=== PATIENT | female | born 1950 | race Caucasian/White ===

== ENCOUNTER 2023-02-19 22:13 | Emergency (ER) | payer MEDICARE ==
[2023-02-19 23:55] VITALS: RESP 16; TEMP 97.5
[2023-02-20] MEDS ORDERED: ONDANSETRON 4 MG/2 ML VIAL IVP STA (00:18)
[2023-02-20] MEDS ORDERED: MORPHINE SULFATE 2 MG/ML SYRINGE IVP STA (00:18)
--- NOTE | 2023-02-20 00:19 | ED ---
Fall HPI - General Source: patient, family, EMS Mode of arrival: EMS <Ce Nieves - Last Filed: 02/20/23 00:35> <Anand Lutz - Last Filed: 02/20/23 00:50> - General Chief Complaint: Fall Stated Complaint: Fall Time Seen by Provider: 02/19/23 22:40 - History of Present Illness Initial Comments: 72-year-old female presenting for evaluation post fall. Patient states that she took a wrong step and then fell down 12 stairs at home. No loss of consciousness or blood thinners. She is complaining mainly of right arm pain and neck pain. She is placed in a c-collar by EMS and makeshift arm splint. No abdominal pain, chest pain, difficulty breathing, palpitations, numbness, tingling, weakness. She was given fentanyl for pain by EMS. (Ce Nieves) - Related Data Allergies Allergy/AdvReac Type Severity Reaction Status Date / Time codeine AdvReac Nausea & Verified 02/19/23 22:59 Vomiting Review of Systems ROS Other: All systems not noted in ROS Statement are negative. <Ce Nieves - Last Filed: 02/20/23 00:35> ROS Other: All systems not noted in ROS Statement are negative. <Anand Lutz - Last Filed: 02/20/23 00:50> ROS Statement: Those systems with pertinent positive or pertinent negative responses have been documented in the HPI. Past Medical History History of Any Multi-Drug Resistant Organisms: None Reported Past Surgical History: Hysterectomy Additional Past Surgical History / Comment(s): double mastectomy 2012. hysterectomy 2004 Past Psychological History: Anxiety, Depression Smoking Status: Never smoker Past Alcohol Use History: None Reported Past Drug Use History: None Reported <Ce Nieves - Last Filed: 02/20/23 00:35> General Exam Limitations: no limitations General appearance: alert, in no apparent distress Head exam: Present: atraumatic, normocephalic, normal inspection Eye exam: Present: normal appearance, PERRL, EOMI. Absent: scleral icterus, conjunctival injection, periorbital swelling Neck exam: Present: normal inspection Respiratory exam: Present: normal lung sounds bilaterally. Absent: respiratory distress, wheezes, rales, rhonchi, stridor Cardiovascular Exam: Present: regular rate, normal rhythm, normal heart sounds. Absent: systolic murmur, diastolic murmur, rubs, gallop, clicks GI/Abdominal exam: Present: soft. Absent: distended, tenderness, guarding, rebound, rigid Right Shoulder Exam: Present: normal inspection, full ROM, tenderness Upper Arm exam: Present: normal inspection, full ROM, tenderness Forearm Wrist exam: Present: tenderness, swelling. Absent: full ROM Vascular: Absent: vascular compromise Neurological exam: Present: alert, oriented X3 Expanded Patient oriented to: Present: person, place, time Speech: Present: fluid speech Cranial nerves: EOM's Intact: Normal Eye Response: (4) open spontaneously Motor Response: (6) obeys commands Verbal Response: (5) oriented Kristi Total: 15 Psychiatric exam: Present: normal affect, normal mood Skin exam: Present: warm, dry, intact, normal color. Absent: rash <eC Nieves - Last Filed: 02/20/23 00:35> Course Vital Signs 02/19/23 02/19/23 22:21 23:47 Temperature 97.5 F L Pulse Rate 55 L 57 L Respiratory 18 16 Rate Blood Pressure 130/62 130/65 O2 Sat by Pulse 97 99 Oximetry Medical Decision Making <Ce Nieves - Last Filed: 02/20/23 00:35> <Anand Lutz - Last Filed: 02/20/23 00:50> - Medical Decision Making Was pt. sent in by a medical professional or institution (, PA, W[employer]ANT OPERATOR, urgent care, hospital, or long term...) When possible be specific @ -No Did you speak to anyone other than the patient for history (EMS, parent, family, police, friend...)? What history was obtained from this source @ -No Did you review nursing and triage notes (agree or disagree)? Why? @ -I reviewed and agree with nursing and triage notes Were old charts reviewed (outside hosp., previous admission, EMS record, old EKG, old radiological studies, urgent care reports/EKG's, long term records)? Report findings @ -No old charts were reviewed Differential Diagnosis (chest pain, altered mental status, abdominal pain women, abdominal pain men, vaginal bleeding, weakness, fever, dyspnea, syncope, headache, dizziness, GI bleed, back pain, seizure, CVA, palpatations, mental health, musculoskeletal)? @ -Differential Musculoskeletal Muscular strain, contusion, ligament sprain, fracture, arthritis, septic arthritis, bursitis, cellulitis, muscle spasm, nerve compression, DVT, arterial occlusion, herpes zoster, electrolyte abnormality, tumor.... This is not meant to be in all inclusive list EKG interpreted by me (3pts min.). @ -As above X-rays interpreted by me (1pt min.). @ -There is a less than 1 mm displaced fracture running obliquely across the radial styloid process. 2-3 mm displaced fracture of the ulnar styloid process U/S interpreted by me (1pt. min.). @ -None done What testing was considered but not performed or refused? (CT, X-rays, U/S, labs)? Why? @ -None What meds were considered but not given or refused? Why? @ -None Did you discuss the management of the patient with other professionals (professionals i.e. , PA, [employer] OPERATOR, lab, RT, psych nurse, social media marketer, change consultant, teacher, special weapons and tactics officer, case resolution specialist)? Give summary @ -No Was smoking cessation discussed for >3mins.? @ -No Was critical care preformed (if so, how long)? @ -No Were there social determinants of health that impacted care today? How? (Homelessness, low income, unemployed, alcoholism, drug addiction, transportation, low edu. Level, literacy, decrease access to med. care, senior living, rehab)? @ -No Was there de-escalation of care discussed even if they declined (Discuss DNR or withdrawal of care, Hospice)? DNR status @ -No What co-morbidities impacted this encounter? (DM, HTN, Smoking, COPD, CAD, Cancer, CVA, ARF, Chemo, Hep., AIDS, mental health diagnosis, sleep apnea, morbid obesity)? @ -None Was patient admitted / discharged? Hospital course, mention meds given and route, prescriptions, significant lab abnormalities, going to OR and other pertinent info. @ -72-year-old female planning for evaluation post fall. Patient fell down 12 stairs at home. Physical exam is conducted, she is having right arm pain and neck pain. She is neurovascularly intact with no focal neurological deficits. X-ray shows fracture of the radius and ulna. She is placed in a sugar tong splint. CT is pending at this time. Case is signed out to my attending for further management and disposition (Ce Nieves) Patient is sent out to me by previous shift physician mental health assistant, [place]. Briefly, patient 72-year-old male fell down 12 stairs at home. He has no high- risk features. Plan [facility] follow-up with pending CT. CT of the head and neck is unremarkable. Patient be discharged. (Anand Lutz) Disposition <Ce Nieves - Last Filed: 02/20/23 00:35> Is patient prescribed a controlled substance at d/c from ED?: No Time of Disposition: 00:48 <Anand Lutz - Last Filed: 02/20/23 00:50> Clinical Impression: Fall Disposition: HOME SELF-CARE Condition: Good Instructions (If sedation given, give patient instructions): Fall Prevention f or Older Adults (ED) Referrals: Nonstaff,Physician [Primary Care Provider] - 1-2 days
--- NOTE | 2023-02-20 00:20 | XR ---
EXAM: XR Right Humerus, 2 or More Views CLINICAL HISTORY: XR Reason: fall TECHNIQUE: Frontal and lateral views of the right humerus. COMPARISON: No relevant prior studies available. FINDINGS: Bones/joints: Unremarkable. No acute fracture. No dislocation. Soft tissues: Unremarkable. IMPRESSION: Normal right humerus x-rays.
--- NOTE | 2023-02-20 00:20 | XR ---
EXAM: XR Right Forearm, 2 Views CLINICAL HISTORY: XR Reason: fall TECHNIQUE: Frontal and lateral views of the right forearm. COMPARISON: No relevant prior studies available. FINDINGS: Bones/joints: There is a less than 1 mm displaced fracture running obliquely across the radial styloid process. 2-3 mm displaced fracture of the ulnar styloid process. Mild narrowing and osteophytosis of the first carpometacarpal joint. The proximal and mid right radius and ulna are intact. The elbow joint appears normally aligned. Soft tissues: Soft tissue swelling at the wrist with a displaced palmar fat pad. IMPRESSION: 1. There is a less than 1 mm displaced fracture running obliquely across the radial styloid process. 2. 2-3 mm displaced fracture of the ulnar styloid process.
--- NOTE | 2023-02-20 00:38 | CT ---
EXAM: CT Head Without Intravenous Contrast CLINICAL HISTORY: CT Reason: fall TECHNIQUE: Axial computed tomography images of the head/brain without intravenous contrast. CTDI is 50 mGy and DLP is 2000 mGy-cm. This CT exam was performed using one or more of the following dose reduction techniques: automated exposure control, adjustment of the mA and/or kV according to patient size, and/or use of iterative reconstruction technique. COMPARISON: No relevant prior studies available. FINDINGS: Brain: Unremarkable. No hemorrhage. No significant white matter disease. No edema. Ventricles: Unremarkable. No ventriculomegaly. Bones/joints: See below. Soft tissues: Small right frontal scalp hematoma. No skull fracture is seen. Sinuses: Unremarkable as visualized. No acute sinusitis. Mastoid air cells: Unremarkable as visualized. No mastoid effusion. IMPRESSION: 1. Small right frontal scalp hematoma. No skull fracture is seen. 2. Unremarkable appearance of the brain. No intracranial hemorrhage or infarct is seen. EXAM: CT Cervical Spine Without Intravenous Contrast CLINICAL HISTORY: CT Reason: fall TECHNIQUE: Axial computed tomography images of the cervical spine without intravenous contrast. CTDI is 8 mGy and DLP is 206.6 mGy-cm. This CT exam was performed using one or more of the following dose reduction techniques: automated exposure control, adjustment of the mA and/or kV according to patient size, and/or use of iterative reconstruction technique. COMPARISON: No relevant prior studies available. FINDINGS: Artifacts: Artifact from metallic earrings. Vertebrae: Mild narrowing and osteophytosis of the atlantodental joint. The odontoid process is intact. No acute fracture. Soft tissues: See above. Thyroid: 8 mm calcification of the right thyroid lobe. DISCS/SPINAL CANAL/NEURAL FORAMINA: C2-C3: Unremarkable. No significant disc disease. No stenosis. C3-C4: Unremarkable. No significant disc disease. No stenosis. C4-C5: Mild degenerative disc disease. No stenosis. C5-C6: Mild degenerative disc disease. No stenosis. C6-C7: Mild degenerative disc disease. No stenosis. C7-T1: Mild degenerative disc disease. No stenosis. IMPRESSION: Mild degenerative disc disease and facet arthrosis throughout the mid to lower cervical spine. There is slight straightening of the normal cervical curvature suggesting spasm. No acute fracture or subluxation is seen.
--- NOTE | 2023-02-20 00:55 | ED ---
Disposition Clinical Impression: Fall Disposition: HOME SELF-CARE Condition: Good Instructions (If sedation given, give patient instructions): Fall Prevention for Older Adults (ED) Is patient prescribed a controlled substance at d/c from ED?: No Referrals: Jennifer Negrete DO [Doctor of Osteopathic Medicine] - 1-2 days Time of Disposition: 00:55
[2023-02-20] MEDS ORDERED: SODIUM CHLORIDE 0.9% 500 ML 500 ML IV ONE (01:24)
[2023-02-20] MEDS ORDERED: METOCLOPRAMIDE 5 MG/ML 2 ML VIAL IVP STA (01:24)
[2023-02-20 02:09] VITALS: BP 101/59; PULSE 71
[2023-02-20] MEDS ORDERED: MECLIZINE 12.5 MG TAB PO STA (03:29)
[2023-02-20 03:50] LABS: Glucose,Whole Blood 135 mg/dL (70-110)
[2023-02-20 04:36] LABS: Basophils % (A) 0 %; Eosinophils % (A) 1 %; HCT 41.2 % (34.0-46.0); Lymphocytes # (A) 1.2 k/uL (1.0-4.8); Lymphocytes % (A) 14 %; MCH 30.2 pg (25.0-35.0); Mean Platelet Volume 8.2; Monocytes # (A) 0.5 k/uL (0-1.0); Monocytes % (A) 6 %; Neutrophils # (A) 6.8 k/uL (1.3-7.7); Neutrophils % (A) 79 %; Platelet Count 291 k/uL (150-450); RBC 4.64 m/uL (3.80-5.40); RDW 12.9 % (11.5-15.5); WBC 8.6 k/uL (3.8-10.6)
[2023-02-20 05:23] LABS: African American GFR (CKD) >90 (>60 ml/min/1.73 sqM); Anion Gap 10 mmol/L; Blood Urea Nitrogen 14 mg/dL (7-17); Calcium 9.3 mg/dL (8.4-10.2); Carbon Dioxide 21 mmol/L (22-30); Chloride 107 mmol/L (98-107); Glucose 140 mg/dL (74-99); Non-African American GFR(CKD) >90 (>60 ml/min/1.73 sqM); Potassium 4.3 mmol/L (3.5-5.1); Sodium 138 mmol/L (137-145)
== END 2023-02-20 07:22 | disposition home or self-care (01) ==
LOC: EC 22:13
DX: S52.611A Displaced fracture of right ulna styloid process, initial encounter for closed fracture (principal); S00.03XA Contusion of scalp, initial encounter; Z88.5 Allergy status to narcotic agent; Z86.59 Personal history of other mental and behavioral disorders; W10.9XXA Fall (on) (from) unspecified stairs and steps, initial encounter
CPT/HCPCS: 36415; 93005; 80048; 85025; 73060; 73090; 72125; 70450; 99285; 96374; 96375 ×2; 29125; J2765; J2405; J2270